=== PATIENT | male | born 1995 | race Caucasian/White ===

== ENCOUNTER 2022-02-16 03:43 | Emergency (ER) | payer OTHER ==
[~2022-02-16] VITALS: Ht 175.3 cm; Wt 59.0 kg
--- NOTE | 2022-02-16 04:00 | NUR ---
PT. IN BED, AOX4, SEEN AND EXAMINED BY DR. JONES. XRAY ORDERED
[2022-02-16] MEDS ORDERED: OXYC-128 PO (04:25)
[2022-02-16 04:48] VITALS: BP 120/80
--- NOTE | 2022-02-16 04:48 | NUR ---
Patient discharged to home in stable condition. Written and verbal after care instructions given. Patient verbalizes understanding of instructions. Stressed follow up or return to ER for worsening s/s.
== END 2022-02-16 04:49 | disposition home or self-care (01) ==
LOC: ER 03:43
DX: S82.842A Displaced bimalleolar fracture of left lower leg, initial encounter for closed fracture (principal); X58.XXXA Exposure to other specified factors, initial encounter; Y92.89 Other specified places as the place of occurrence of the external cause
CPT/HCPCS: 73610; A4663